=== PATIENT | male | born 1995 | race Caucasian/White ===

== ENCOUNTER 2021-03-08 08:45 | Emergency (ER) | payer SELFPAY ==
[~2021-03-08] VITALS: Ht 170.2 cm; Wt 77.1 kg
[2021-03-08] MEDS ORDERED: MORPHINE SULFATE 4 MG/1 ML DISP.SYRIN IV ONE (09:00)
[2021-03-08] MEDS ORDERED: MORPHINE SULFATE 4 MG/1 ML DISP.SYRIN ONE (09:09)
[2021-03-08] MEDS ORDERED: HYDR-3980 PO (09:22)
[2021-03-08] MEDS ORDERED: IBUP-1953 PO (09:22)
--- NOTE | 2021-03-08 10:11 | NUR ---
PT WAS EVALUATED BY DR KIM. PT WAS D/C'd TO HOME . D/C INSTRUCTIONS GIVEN TO THE PT BY DR KIM.
[2021-03-08 10:12] VITALS: BP 137/68
== END 2021-03-08 10:13 | disposition home or self-care (01) ==
LOC: ER 08:45
DX: S42.302A Unspecified fracture of shaft of humerus, left arm, initial encounter for closed fracture (principal); W18.30XA Fall on same level, unspecified, initial encounter; Y92.89 Other specified places as the place of occurrence of the external cause
CPT/HCPCS: 29105; 73030; 73060; 96374; 99284; J2270; A4663; J7030